=== PATIENT | male | born 1960 | race Caucasian/White ===

== ENCOUNTER → 2022-01-04 | Outpatient (CLI) | payer MEDICARE, OTHER | LOC: HEART CORB 09:30 | DX: I73.9 Peripheral vascular disease, unspecified (principal) ==

== ENCOUNTER → 2022-01-12 | Outpatient (CLI) | payer MEDICARE, OTHER | LOC: NM 12:01 | DX: R07.2 Precordial pain (principal); R06.02 Shortness of breath | CPT/HCPCS: 78452; 93017; A9502; J2785 ==